=== PATIENT | female | born 1995 | race Caucasian/White ===

== ENCOUNTER 2017-08-01 22:33 | Emergency (ER) | payer MEDICAID ==
[~2017-08-01] VITALS: Ht 167.6 cm; Wt 54.4 kg
[2017-08-01 22:45] VITALS: BP_SYST 120
[2017-08-02] MEDS: ONDANSETRON 4 MG ODT TAB PO ONE (00:09)
[2017-08-02] MEDS: cefTRIAXone 1 GM in LIDOCAINE 1%, 20 ML MDV 2.1 ML IM ONE (00:09)
[2017-08-02] MEDS: HYDROcodone/ACETAMIN 7.5-325 MG TAB PO ONE (00:09)
[2017-08-02 00:30] VITALS: BP_SYST 124
== END 2017-08-02 00:30 | disposition home or self-care (01) ==
LOC: SED 22:33
DX: H72.92 Unspecified perforation of tympanic membrane, left ear (principal); J03.90 Acute tonsillitis, unspecified; H66.93 Otitis media, unspecified, bilateral
CPT/HCPCS: 96372; 99283; J0696; J2001; Q0162

== ENCOUNTER 2017-08-28 18:49 | Emergency (ER) | payer MEDICAID ==
[~2017-08-28] VITALS: Ht 167.6 cm; Wt 52.2 kg
[2017-08-28 19:05] VITALS: BP_SYST 117
[2017-08-28 19:53] VITALS: BP_SYST 117
== END 2017-08-28 19:53 | disposition home or self-care (01) ==
LOC: SED 18:49
DX: J02.9 Acute pharyngitis, unspecified (principal)
CPT/HCPCS: 99281

== ENCOUNTER 2018-04-14 18:14 | Emergency (ER) | payer MEDICAID ==
[~2018-04-14] VITALS: Ht 167.6 cm; Wt 57.2 kg
[2018-04-14 18:17] VITALS: BP_SYST 106
[2018-04-14] MEDS ORDERED: KETOROLAC TROMETHAMINE 30 MG VIAL IM ONE (18:45)
[2018-04-14] MEDS ORDERED: PENICILLIN G BENZATHINE 1.2 MMU/2 ML SYR IM ONE (18:45)
[2018-04-14 19:20] VITALS: BP_SYST 115
== END 2018-04-14 19:20 | disposition home or self-care (01) ==
LOC: SED 18:14
DX: J02.0 Streptococcal pharyngitis (principal)
CPT/HCPCS: 81025; 96372; 99283; J0561; J1885

== ENCOUNTER 2018-07-07 16:35 | Emergency (ER) | payer MEDICAID ==
[~2018-07-07] VITALS: Ht 170.2 cm; Wt 56.7 kg
[2018-07-07 16:46] VITALS: BP_SYST 125
--- NOTE | 2018-07-07 19:19 | NUR ---
Patient to ER bed 3 to gown for evaluation. Side rails up. Report given to Johanna ESCOBAR.
--- NOTE | 2018-07-07 19:20 | NUR ---
Patient AOx4, ambulatory, presents to ER with complaint of intermittent SOB x 4-5 days. Patient states dry cough and a right neck lump. No reports of fever. O2 sat 99% RA. Patient resting comfortably on gurney, speaking in full sentences. No acute distress noted at this time.
--- NOTE | 2018-07-07 19:51 | NUR ---
ER MD Sahni at bedside for medical evaluation.
[2018-07-07 20:17] VITALS: BP_SYST 132
--- NOTE | 2018-07-07 20:17 | NUR ---
Patient given written and verbal discharge instructions and verbalizes understanding. ER MD discussed with patient the results and treatment provided. Patient in stable condition. ID arm band removed. Rx of Prednisone given. Patient educated on pain management and to follow up with PMD. Pain Scale 0/10. Opportunity for questions provided and answered. Medication side effect fact sheet provided.
== END 2018-07-07 20:17 | disposition home or self-care (01) ==
LOC: SED 16:35
DX: R59.1 Generalized enlarged lymph nodes (principal); R05 Cough; F17.210 Nicotine dependence, cigarettes, uncomplicated; R03.0 Elevated blood-pressure reading, without diagnosis of hypertension
CPT/HCPCS: 99283

== ENCOUNTER 2019-04-13 12:49 | Emergency (ER) | payer MEDICAID ==
[~2019-04-13] VITALS: Ht 167.6 cm; Wt 52.2 kg
[2019-04-13 13:30] VITALS: BP_SYST 136
[2019-04-13 15:00] LABS: BASOPHILS # (AUTO) 0.1 K/uL (0.0-0.2); BASOPHILS % (AUTO) 0.8 % (0.0-2.0); EOSINOPHILS # (AUTO) 0.1 K/uL (0.0-0.4); HEMATOCRIT 43.4 % (36-48); HEMOGLOBIN 14.3 g/dL (12.0-16.0); LYMPHOCYTES # (AUTO) 2.6 K/uL (1.0-5.5); LYMPHOCYTES % (AUTO) 30.7 % (20.5-51.5); MEAN CORPUSCULAR HEMOGLOBIN 31 pg (27-31); MEAN CORPUSCULAR HGB CONC 33 % (32-36); MEAN CORPUSCULAR VOLUME 93 fL (79.0-98.0); MONOCYTES # (AUTO) 0.7 K/uL (0.0-1.0); MONOCYTES % (AUTO) 8.1 % (1.7-9.3); NEUTROPHILS # (AUTO) 5.1 K/uL (1.8-7.7); NEUTROPHILS % (AUTO) 59.4 % (40.0-70.0); PLATELET COUNT (AUTO) 241 K/uL (130-430); RED BLOOD CELL COUNT(AUTO) 4.69 MIL/uL (4.2-6.2); RED CELL DISTRIBUTION WIDTH 14.3 % (9.0-15.0); WHITE BLOOD COUNT (AUTO) 8.6 K/uL (4.8-10.8)
[2019-04-13 15:14] LABS: CALCIUM 9.2 mg/dL (8.4-11.0); CREATININE 1.01 mg/dL (0.55-1.30)
[2019-04-13 15:42] LABS: ALBUMIN 4.3 g/dL (3.4-4.8); TOTAL BILIRUBIN 0.4 mg/dL (0.0-1.0)
--- NOTE | 2019-04-13 17:00 | NUR ---
Patient to h1 to gown for evaluation. Side rails up.
--- NOTE | 2019-04-13 17:10 | NUR ---
ER at bedside examining patient.
--- NOTE | 2019-04-13 17:25 | NUR ---
Dr. Wilson at bedside explaining results
--- NOTE | 2019-04-13 17:34 | NUR ---
Patient given written and verbal discharge instructions and verbalizes understanding. ER MD discussed with patient the results and treatment provided. Patient in stable condition. ID arm band removed. no Rx given. Patient educated on pain management and to follow up with PMD. Pain Scale 0. Opportunity for questions provided and answered. Medication side effect fact sheet provided.
[2019-04-13 17:40] VITALS: BP_SYST 130
== END 2019-04-13 17:34 | disposition home or self-care (01) ==
LOC: SED 12:49
DX: O20.0 Threatened abortion (principal); O26.31 Retained intrauterine contraceptive device in pregnancy, first trimester; Z3A.01 Less than 8 weeks gestation of pregnancy
CPT/HCPCS: 36415; 76801; 76817; 80053; 84702-TC; 85025; 99284

== ENCOUNTER 2019-05-17 16:02 | Emergency (ER) | payer MEDICAID ==
[~2019-05-17] VITALS: Ht 167.6 cm; Wt 56.7 kg
--- NOTE | 2019-05-17 16:02 | NUR ---
Patient triaged and placed in waiting room. VSS and patient appears in no acute distress at this time. Accompanied by SELF, awaiting available bed, and MD notified of need for MSE.
[2019-05-17 16:05] VITALS: BP_SYST 111
[2019-05-17 16:32] LABS: BASOPHILS % (AUTO) 0.4 % (0.0-2.0); EOSINOPHILS # (AUTO) 0.1 K/uL (0.0-0.4); EOSINOPHILS % (AUTO) 1.2 % (0.0-4.0); HEMATOCRIT 38.6 % (36-48); HEMOGLOBIN 12.8 g/dL (12.0-16.0); LYMPHOCYTES # (AUTO) 2.6 K/uL (1.0-5.5); LYMPHOCYTES % (AUTO) 33.1 % (20.5-51.5); MEAN CORPUSCULAR HEMOGLOBIN 31 pg (27-31); MEAN CORPUSCULAR HGB CONC 33 % (32-36); MEAN CORPUSCULAR VOLUME 92 fL (79.0-98.0); MONOCYTES # (AUTO) 0.5 K/uL (0.0-1.0); MONOCYTES % (AUTO) 6.9 % (1.7-9.3); NEUTROPHILS # (AUTO) 4.6 K/uL (1.8-7.7); NEUTROPHILS % (AUTO) 58.4 % (40.0-70.0); PLATELET COUNT (AUTO) 191 K/uL (130-430); RED BLOOD CELL COUNT(AUTO) 4.19 MIL/uL (4.2-6.2); RED CELL DISTRIBUTION WIDTH 13.2 % (9.0-15.0); WHITE BLOOD COUNT (AUTO) 7.9 K/uL (4.8-10.8)
--- NOTE | 2019-05-17 17:23 | NUR ---
Note buffy in EDM - 05/17/19 at 1950 by [facility] Rhogam 130mg given IM per MD orders. Pt tolerated well, no adverse reaction. Given Rhophylac card for immunization record
[2019-05-17 17:25] LABS: PROTHROMBIN TIME 10.4 SECS (9.5-12.5)
--- NOTE | 2019-05-17 17:32 | NUR ---
AFTER HAVING ULTRASOUND, PT PLACED IN BED #2 AND REPORT GIVEN TO MIGUEL A
--- NOTE | 2019-05-17 18:05 | NUR ---
ER Dr. Alvarez at bedside examining patient.
--- NOTE | 2019-05-17 18:14 | NUR ---
Pt c/o lower abd cramping last night and spotting today. 2 pads, not saturated. Approx 10wks. +n/v this morning. Pt states that she vomits every morning for the past 5 weeks.
[2019-05-17] MEDS ORDERED: VANCOMYCIN HCL 1,000 MG in NS 250 ML IV ONE (18:15)
--- NOTE | 2019-05-17 18:54 | NUR ---
Patient resting quietly. No acute distress noted. Vital signs within normal range.
--- NOTE | 2019-05-17 19:23 | NUR ---
Rhogam 130mg given IM per MD orders. Pt tolerated well, no adverse reaction. Given Rhophylac card for immunization record
--- NOTE | 2019-05-17 19:39 | NUR ---
Patient given written and verbal discharge instructions and verbalizes understanding. ER MD discussed with patient the results and treatment provided. Patient in stable condition. ID arm band removed. No Rx given. Patient educated on pain management and to follow up with PMD. Pain Scale 0/10. Pt advised to follow up with OBGYN, no sex or tampons. Opportunity for questions provided and answered. Medication side effect fact sheet provided.
[2019-05-17 19:41] VITALS: BP_SYST 115
== END 2019-05-17 19:41 | disposition home or self-care (01) ==
LOC: SED 16:02
DX: O20.0 Threatened abortion (principal); Z3A.11 11 weeks gestation of pregnancy
CPT/HCPCS: 36415; 76802; 81025; 84702; 85025; 85610; 85730; 86900; 86901; 99284; J2790